=== PATIENT | female | born 1990 | race Caucasian/White ===

== ENCOUNTER 2018-07-21 12:11 | Emergency (ER) | payer OTHER, SELFPAY ==
--- NOTE | 2018-07-21 12:12 | W.ED.GENAD ---
Discharge Plan Disposition Patient Disposition: HOME Condition: Stable Discharge Details Chief Complaint: Orthopedic Clinical Impression: Right knee sprain Primary Care Provider: Leslie,Local ED Provider: Vipin Velarde Home Meds and New Rx's Prescriptions: No Action No Known Home Meds RF: 0 Discharge Instructions Instructions: Knee Sprain (ED) Additional Instructions: you can take 1000mg acetaminophen (tylenol) and 600mg ibuprofen every 6 hours for pain as needed follow up with your primary care provider when you return home especially if pain continues Medical Decision Making 27 yo female who denies chronic medical problems comes in with right knee pain. She is visiting from [place] and states she slipped yesterday afternoon twisting her right knee, denies head trauma or loc, no n/v, headache, neck pain, chest pain, abd pain. She has pain and swelling to the right knee. She is able to bear weight though with pain. Intact distal sensation and no pain in the right hip or ankle on rom. Can only flex to about 40 degrees before pain limits this. No laxity on exam. Will xray though likely has meniscus injury, less likely ligamentous injury ] xray negative on my read, given hinged knee brace and crutches and advised f/u with pcp when she reeturns home in 2 weeks especially if pain continues Differential Diagnosis contusion, sprain, meniscus injury, ligament injury Imaging Data Radiologic Study: Attestation: I personally reviewed and interpreted this imaging study as follows: Imaging: X-Ray My impression: no acute findings HPI General Mode of arrival: ambulatory. Date/Time Provider Initiated Documentation: 07/21/18 12:12. Limitations to Documentation: no limitations. Information obtained by: patient. History of Present Illness 27 year old F presents to the emergency department with the chief complaint of pain s/p fall, described as moderate, Quality is described as aching, and is localized to the right and lower extremity. Patient reports no radiation. Patient started experiencing this day(s) (1) and it has been constant. Rest improves symptom(s), Movement worsens symptoms . Patient notes no other symptoms.. Patient did receive the following treatments prior to arrival, none Related Data Home Medications Medication Instructions Recorded Confirmed Unknown [No Known Home Meds] 07/21/18 07/21/18 Allergies Allergy/AdvReac Type Severity Reaction Status Date / Time adhesive AdvReac Unverified 07/21/18 12:22 Review of Systems Review of Systems All systems reviewed & are unremarkable except as noted in HPI and below Cardiovascular Denies chest pain and Denies dyspnea Respiratory Denies dyspnea Gastrointestinal Denies abdominal pain, Denies nausea and Denies vomiting PFSH Social History Smoking/Tobacco Use Status: Never Alcohol Intake: current Alcohol Intake frequency: holidays/special occasions only Substance use type: does not use Do you feel safe at home: Yes Do you feel safe in your relationship?: Yes Exam Const General: no acute distress Orientation: alert HENMT Head: normal to inspection Ears: external ears normal General nose exam: external nose normal Mouth: moist mucous membranes Eyes General: appearance normal, both eyes and all related structures Neck Neck: normal visual inspection Resp Effort & Inspection: normal respiratory effort and able to speak in complete sentences Cardio Rate: regular rate Skin General skin exam: no rashes or lesions noted Neuro General: alert and oriented x3 Extrem General: normal capillary refill Psych Mental Status: mental status grossly normal
[2018-07-21 12:18] VITALS: BP 109/82; PULSE 86; RESP 20; TEMP 36.5; O2SAT 99
--- NOTE | 2018-07-21 12:30 | ED.GENADUL_ITS ---
Discharge Plan Disposition Patient Disposition: HOME Condition: Stable Discharge Details Chief Complaint: Orthopedic Clinical Impression: Right knee sprain Primary Care Provider: Leslie,Local ED Provider: Vipin Velarde Home Meds and New Rx's Prescriptions: No Action No Known Home Meds RF: 0 Discharge Instructions Instructions: Knee Sprain (ED) Additional Instructions: you can take 1000mg acetaminophen (tylenol) and 600mg ibuprofen every 6 hours for pain as needed follow up with your primary care provider when you return home especially if pain continues Medical Decision Making 27 yo female who denies chronic medical problems comes in with right knee pain. She is visiting from [place] and states she slipped yesterday afternoon twisting her right knee, denies head trauma or loc, no n/v, headache, neck pain, chest pain, abd pain. She has pain and swelling to the right knee. She is able to bear weight though with pain. Intact distal sensation and no pain in the right hip or ankle on rom. Can only flex to about 40 degrees before pain limits this. No laxity on exam. Will xray though likely has meniscus injury, less likely ligamentous injury ] xray negative on my read, given hinged knee brace and crutches and advised f/u with pcp when she reeturns home in 2 weeks especially if pain continues Differential Diagnosis contusion, sprain, meniscus injury, ligament injury Imaging Data Radiologic Study: Attestation: I personally reviewed and interpreted this imaging study as follows: Imaging: X-Ray My impression: no acute findings HPI General Mode of arrival: ambulatory . Date/Time Provider Initiated Documentation: 07/21/18 12:12 . Limitations to Documentation: no limitations . Information obtained by: patient . History of Present Illness 27 year old F presents to the emergency department with the chief complaint of pain s/p fall, described as moderate, Quality is described as aching, and is localized to the right and lower extremity. Patient reports no radiation. Patient started experiencing this day(s) (1) and it has been constant. Rest improves symptom(s), Movement worsens symptoms . Patient notes no other symptoms.. Patient did receive the following treatments prior to arrival, none Related Data Home Medications Medication Instructions Recorded Confirmed Unknown [No Known Home Meds] 07/21/18 07/21/18 Allergies Allergy/AdvReac Type Severity Reaction Status Date / Time adhesive AdvReac Unverified 07/21/18 12:22 Review of Systems Review of Systems All systems reviewed & are unremarkable except as noted in HPI and below Cardiovascular Denies chest pain and Denies dyspnea Respiratory Denies dyspnea Gastrointestinal Denies abdominal pain, Denies nausea and Denies vomiting PFSH Social History Smoking/Tobacco Use Status: Never Alcohol Intake: current Alcohol Intake frequency: holidays/special occasions only Substance use type: does not use Do you feel safe at home: Yes Do you feel safe in your relationship?: Yes Exam Const General: no acute distress Orientation: alert HENMT Head: normal to inspection Ears: external ears normal General nose exam: external nose normal Mouth: moist mucous membranes Eyes General: appearance normal, both eyes and all related structures Neck Neck: normal visual inspection Resp Effort & Inspection: normal respiratory effort and able to speak in complete sentences Cardio Rate: regular rate Skin General skin exam: no rashes or lesions noted Neuro General: alert and oriented x3 Extrem General: normal capillary refill Psych Mental Status: mental status grossly normal
--- NOTE | 2018-07-21 12:44 | DI.RAD_ITS ---
SYMPTOMS/DIAGNOSIS: PAIN S/P FALL RIGHT KNEE: A small joint effusion is seen. There is no evidence of fracture. The joint spaces are well maintained. IMPRESSION: Small joint effusion.
== END 2018-07-21 13:15 | disposition home or self-care (01) ==
LOC: ER 13:50
PROVIDERS: Emergency Provider Emergency Medicine
DX: S83.91XA Sprain of unspecified site of right knee, initial encounter (principal); W00.0XXA Fall on same level due to ice and snow, initial encounter
CPT/HCPCS: 29505; 73562; 99283; 99282; E0114; L1830